=== PATIENT | female | born 1975 | race Hispanic/Latino ===

== ENCOUNTER 2020-11-26 13:49 | Emergency (ER) | payer OTHER ==
[~2020-11-26] VITALS: Ht 167.6 cm; Wt 90.7 kg
[2020-11-26] MEDS ORDERED: REGLAN10 MG PO (14:06)
[2020-11-26] MEDS ORDERED: MOTRIN200 MG PO (14:06)
[2020-11-26] MEDS ORDERED: DECADRON4 M1 PO (14:06)
[2020-11-26] MEDS ORDERED: ZOFRAN4 MG SL (14:06)
== END 2020-11-26 15:57 | disposition home or self-care (01) ==
LOC: ER 14:06
DX: R50.9 Fever, unspecified (principal); R05 Cough; U07.1 COVID-19
CPT/HCPCS: 99283